=== PATIENT | male | born 1960 | race African-American/Black ===

== ENCOUNTER 2024-10-11 21:10 | Outpatient (REF) | payer OTHER, SELFPAY ==
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
--- OUTSIDE RECORDS SUMMARY | 2024-10-11 13:31 | XMS_ITS | Clinical Summary ---
Author Organization [facility] Address [address] [place] [address] Phone Care Team Providers Care Roaster Helper Name Role Phone Physician, Pcp Unknown Primary Care Provider Ashli vailable Allergies No known active allergies Medications methocarbamoL (ROBAXIN) 750 mg tablet Take 1 tablet (750 mg total) by mouth 4 (four) times a day for 5 days. 20 each 04/17/2024 Active Active Problems No known active problems Surgical History Surgery Date Site/Laterality Comments HIP SURGERY PROCEDURE: HIP SURGERY Medical History Medical History Date Comments Hypertension DX: Hypertension Diabetes mellitus ([facility] V24, [facility] V28) DX: Diabetes mellitus Social History Tobacco Use Types Packs/Day Years Used Date Smoking Tobacco: Every Day Cigarettes Smokeless Tobacco: Never Sex and Gender Information Value Date Recorded Sex Assigned at Male 04/17/2024 7:42 AM EST Legal Sex Male 9:58 PM EST Gender Identity Male 04/17/2024 7:42 AM EST Sexual Orientation Choose not to disclose 2024 7:42 AM EST Obstetrics History Last Filed Vital Signs Vital Sign Reading Time Taken Comments Blood Pressure 149/87 05/14/2024 5:20 AM EST Pulse 61 05/14/2024 5:20 AM EST Temperature 36.7 C (98.1 F) 05/14/2024 5:20 AM EST Respiratory Rate 18 05/14/2024 5:20 AM EST Oxygen Saturation 98% 05/14/2024 5:20 AM EST Inhaled Oxygen Concentration - - Weight 109 kg (240 lb) 05/14/2024 5:20 AM EST Height 175.3 cm (5' 9 ) 05/14/2024 5:20 AM EST Body Mass Index 35.44 05/14/2024 5:20 AM EST Plan of Treatment Health Maintenance Due Date Last Done Comments Diabetes: Annual GFR (Glomer ular Filtration Rate) 1960 Diabetes: Annual Foot Exam 1970 Diabetes: Annual Retina Eye Exam 1970 Pneumococcal Vaccine: 50+ Ye ars (1 of 2 - PCV) 08/01/1979 Zoster Vaccines (1 of 2) 2010 Cholesterol Screening (Lipid Panel) 02/14/2022 Colorectal Cancer Screening: Colonoscopy 02/14/2022 HIV Screening 02/14/2022 Hepatitis C Screening 02/14/2022 Medicare Annual Wellness Visit 02/14/2022 Social Influencers of Health Screening 02/14/2022 COVID-19 Vaccine (2 - 2023-2 5 season) 2023 05/05/2021 Depression Screening 03/15/2024 Diabetes: Annual Urine Albumin-Creatinine Ratio (uACR) 04/17/2024 Diabetes: Blood Sugar Contro l Test (HGBA1C) 04/17/2024 Hypertension/CHF/CAD Annual BMP Blood Test 04/17/2024 Influenza Vaccine (#1) 2024 01/26/2012 DTaP,Tdap,and Td Vaccines (2 - Td or Tdap) 08/21/2030 08/21/2020 RSV Immunization Adult Patie nts (1 - 1-dose 75+ series) 08/01/2035 HIB Vaccines Aged Out No longer eligi ble based on patient's age to complete this topic HPV Vaccines Aged Out No longer eligi ble based on patient's age to complete this topic Hepatitis A Vaccines Aged Out No long er eligible based on patient's age to complete this topic Hepatitis B Vaccines Aged Out No long er eligible based on patient's age to complete this topic IPV Vaccines Aged Out No longer eligi ble based on patient's age to complete this topic MMR Vaccines Aged Out No longer eligi ble based on patient's age to complete this topic Meningococcal ACWY Vaccine Aged Out N o longer eligible based on patient's age to complete this topic Meningococcal B Vaccine Aged Out No l onger eligible based on patient's age to complete this topic RSV Immunization Patients Un aldair 20 months Aged Out No longer eligible b ased on patient's age to complete this topic Varicella Vaccines Aged Out No longer eligible based on patient's age to complete this topic Insurance [facility] MEDICARE Member Subscriber Plan / Payer (Ef fective 2019-Present) Name:Chidi Zuluaga Relation to Subscriber:Self Name:Chidi Zuluaga Payer ID:[id number] Group ID:[id number] Type:Not on file Address: [address] [place] [phone] [facility] MEDICARE Member Subscriber Plan / Payer (Ef fective 2019-Present) Name:Chidi Zuluaga Relation to Subscriber:Self Name:Chidi Zuluaga Payer ID:[id number] Group ID:[id number] Type:Not on file Address: [address] [place] [phone] Care Teams Roaster Helper Relationship Specialty Start Date End Date Physician, Pcp Unknown PCP - General 04/17/24
== END 2024-10-11 21:11 | disposition home or self-care (01) ==
LOC: HO.HOSX 21:10
PROVIDERS: Visit Provider Physician Assistant
DX: Z13.89 Encounter for screening for other disorder (principal)

== ENCOUNTER 2024-10-12 12:19 | Outpatient (REF) | payer OTHER, SELFPAY ==
--- NOTE | ~2024-10-12 | XR_ITS ---
EXAMINATION: XR KNEE, RIGHT CLINICAL INFORMATION: M25.561 - Pain in right knee COMPARISON: None available. TECHNIQUE: Three views of the right knee. FINDINGS: There is severe medial joint space narrowing and mild lateral joint space narrowing with subchondral sclerosis in the medial compartment. There is no joint effusion. Tricompartmental marginal osteophytes are present. XR/XR knee RT 3V IMPRESSION: Severe osteoarthritis. Electronically signed by: Angel Bustillo MD 10/12/2024 01:29 PM EDT
--- NOTE | ~2024-10-12 | XR_ITS ---
EXAMINATION: XR KNEE, LEFT CLINICAL INFORMATION: M25.562 - Pain in left knee COMPARISON: None available. TECHNIQUE: Three views of the left knee. FINDINGS: There is no joint effusion. There is mild narrowing of the medial joint space and mild narrowing of the lateral. There are tricompartmental marginal osteophytes. XR/XR knee LT 3V IMPRESSION: Moderate osteoarthritis of the left knee. Electronically signed by: Angel Bustillo MD 10/12/2024 01:30 PM EDT
--- OUTSIDE RECORDS SUMMARY | 2024-10-12 12:40 | XMS_ITS | Clinical Summary ---
Author Organization [facility] Address [address] [place] [address] Phone Care Team Providers Care Visual Basic Developer Name Role Phone Physician, Pcp Unknown Primary [...] Date Comments Hypertension DX: Hypertension Diabetes mellitus ([facility] V24, [facility] V28) DX: Diabetes mellitus Social History Tobacco [...] patient's age to complete this topic Insurance [facility] MEDICARE Member Subscriber Plan / Payer (Ef fective 2019-Present) Name:Chidi Zuluaga Relation to Subscriber:Self Name:Chidi Zuluaga Payer ID:[id number] Group ID:[id number] Type:Not on file Address: [address] [place] [phone] [facility] MEDICARE Member Subscriber Plan / Payer (Ef fective 2019-Present) Name:Chidi Zuluaga Relation to Subscriber:Self Name:Chidi Zuluaga Payer ID:[id number] Group ID:[id number] Type:Not on file Address: [address] [place] [phone] Care Teams Visual Basic Developer Relationship Specialty Start Date End Date Physician, Pcp Unknown PCP - General 04/17/24
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
== END 2024-10-12 12:20 | disposition home or self-care (01) ==
LOC: HO.HOSX 12:19
PROVIDERS: Visit Provider Orthopaedic Surgery
DX: M17.12 Unilateral primary osteoarthritis, left knee (principal); M17.11 Unilateral primary osteoarthritis, right knee; M25.561 Pain in right knee; M25.562 Pain in left knee
CPT/HCPCS: 73562

== ENCOUNTER 2024-10-12 13:00 | Outpatient (AMB) | payer OTHER, SELFPAY ==
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
== END 2024-10-12 13:27 | disposition home or self-care (01) ==
LOC: HO.HOS 13:01
PROVIDERS: Visit Provider Orthopaedic Surgery
DX: M25.562 Pain in left knee (principal); M17.0 Bilateral primary osteoarthritis of knee
CPT/HCPCS: 99203; G2211

== ENCOUNTER → 2024-10-12 13:02 | Outpatient (BNV) | payer OTHER, SELFPAY | PROVIDERS: Visit Provider Radiology Diagnostic Radiology | DX: M17.0 Bilateral primary osteoarthritis of knee (principal) | CPT/HCPCS: 73562 ==

== ENCOUNTER 2024-10-25 13:45 | Outpatient (AMB) | payer OTHER, SELFPAY ==
--- NOTE | 2024-10-25 14:00 | MHC.OFFVIS ---
Intake Visit Reasons: OV- Bilateral Knee Pain Intake Note: Chidi is a 64 year old male who presents today as a follow up for his Bilateral Knee Pain. At last visit on 10/12/24 we discussed to take meloxicam and to continue his at home exercise program. Patient states his knees are not as painful and states he would like a refill on the meloxicam. He denies any locking or giving way. He wishes to hold off on surgery or an injection for now. Allergies No Known Allergies Allergy (Verified 10/25/24 14:00) Medication List - Last Reconciled 10/25/24 by Manuel Heller MD meloxicam 15 mg PO DAILY PRN Physical Exam Extrem Other: Bilateral lower extremity examination shows good capillary refill, no skin lesions noted, normal sensation light touch Bilateral knee examination shows minimal effusions, mild crepitus with range of motion, no instability, mild discomfort with range of motion Assessment & Plan Assessment & Plan (1) Osteoarthritis of left knee: Code(s): M17.12 - Unilateral primary osteoarthritis, left knee Category: Medical (2) Osteoarthritis of right knee: Code(s): M17.11 - Unilateral primary osteoarthritis, right knee Category: Medical Plan Mr. Zuluaga presents with intermittent bilateral knee discomfort due to degenerative joint disease. I had a lengthy discussion with the patient regarding the treatment options. At this point the patient's symptoms are tolerable to him. I did refill his prescription for meloxicam. Will continue with his activity modifications. He will follow up with me on an as-needed basis should his symptoms worsen in any way. I spent 22 minutes in reviewing the patient's records and imaging studies, seeing the patient and documenting in the medical record. Medications: Refilled meloxicam 15 mg PO DAILY PRN 30 tabs 2RF pain Coding Level of Care Code Est Pt Level 3 (54484) Complex EM visit Add On G2211 Diagnoses Osteoarthritis of left knee M17.12 Osteoarthritis of right knee M17.11
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
--- OUTSIDE RECORDS SUMMARY | 2024-10-25 14:09 | XMS_ITS | Clinical Summary ---
Author Organization [facility] Address [address] [place] [address] Phone Care Team Providers Care Shift Production Associate Name Role Phone Physician, Pcp Unknown Primary [...] Date Comments Hypertension DX: Hypertension Diabetes mellitus ([facility] V24, [facility] V28) DX: Diabetes mellitus Social History Tobacco [...] patient's age to complete this topic Insurance [facility] MEDICARE Member Subscriber Plan / Payer (Ef fective 2019-Present) Name:Chidi Zuluaga Relation to Subscriber:Self Name:Chidi Zuluaga Payer ID:[id number] Group ID:[id number] Type:Not on file Address: [address] [place] [phone] [facility] MEDICARE Member Subscriber Plan / Payer (Ef fective 2019-Present) Name:Chidi Zuluaga Relation to Subscriber:Self Name:Chidi Zuluaga Payer ID:[id number] Group ID:[id number] Type:Not on file Address: [address] [place] [phone] Care Teams Shift Production Associate Relationship Specialty Start Date End Date Physician, Pcp Unknown PCP - General 04/17/24
== END 2024-10-25 14:38 | disposition home or self-care (01) ==
LOC: HO.HOS 13:45
PROVIDERS: Visit Provider Orthopaedic Surgery
DX: M17.0 Bilateral primary osteoarthritis of knee (principal)
CPT/HCPCS: 99213; G2211